=== PATIENT | male | born 1935 | race Caucasian/White ===

== ENCOUNTER → 2016-08-04 | Outpatient (CLI) | payer MEDICARE, BC ==
[~2016-08-04] MED LIST: CARVEDILOL12.5 MG PO; DIGOX0.125 MG DOB; HUMALOG100 U/ML SQ; JANTOVEN4 MG PO; LANTUS100 U/ML SQ; MIRTAZAPINE30 MG PO; NITROFURANTOIN100 M3 PO; PAROXETINE HCL20 MG PO; PLAVIX PO; PROTONIX PO; PROZAC40 MG DOB; SIMVASTATIN20 MG PO; TESTOSTERONE60 GM TD; ZOLPIDEM TARTRAT5 M1 PO
== END | disposition home or self-care (01) ==
LOC: CLAB 18:10
DX: N10 Acute pyelonephritis (principal)
CPT/HCPCS: 87086

== ENCOUNTER → 2016-09-21 | Outpatient (CLI) | payer MEDICARE, BC | END | disposition home or self-care (01) | LOC: CSSDAY 11:00 | DX: D46.1 Refractory anemia with ring sideroblasts (principal); Z79.899 Other long term (current) drug therapy | CPT/HCPCS: 96372; J1447 ==

== ENCOUNTER → 2016-09-23 | Outpatient (CLI) | payer MEDICARE, BC ==
[2016-09-23 15:31] LABS: BASOPHIL# 0.1 X10e3 (0-0.3); BASOPHIL% 0.4 % (0-2.5); EOSINOPHIL# 0.1 X10e3 (0-0.7); EOSINOPHIL% 0.5 % (0.0-7.0); HEMATOCRIT 26.9 % (38.0-50.0); HEMOGLOBIN 8.8 gm/dL (13.0-16.0); LYMPHOCYTE# 2.1 X10e3 (1.0-3.5); LYMPHOCYTE% 15.4 % (17.0-45.0); MEAN CELL VOLUME 108.7 FL (83-96); MEAN CORPUSCULAR HEMOGLOBIN 35.5 PG (28-34); MEAN CORPUSCULAR HGB CONC 32.6 g/dL (30-36); MEAN PLATELET VOLUME 8.5 FL (6.5-11.5); MONOCYTE# 0.8 X10e3 (0-1.0); MONOCYTE% 5.9 % (3.0-12.0); NEUTROPHIL# 10.4 X10e3 (1.5-7.1); NEUTROPHIL% 77.8 % (40-75); PLATELET COUNT 219 X10e3 (140-420); RED BLOOD COUNT 2.47 X10e (3.90-5.60); RED CELL DISTRIBUTION WIDTH 17.5 % (11.0-15.5); WHITE BLOOD COUNT 13.4 X10e3 (4.0-10.5)
[2016-09-23 15:32] LABS: DIFF IND YES
[2016-09-23 15:34] LABS: PROTHROMBIN TIME (PATIENT) 22.2 SECONDS (10.0-11.7)
[2016-09-23 16:05] LABS: ANISOCYTOSIS SL; PLATELET ESTIMATE NORMAL (NORMAL); POIKILOCYTOSIS SL; RBC NORMAL YES
== END | disposition home or self-care (01) ==
LOC: CSSDAY 08:00
PROVIDERS: Internal Medicine Cardiovascular Disease
DX: D46.1 Refractory anemia with ring sideroblasts (principal); R06.02 Shortness of breath; K92.2 Gastrointestinal hemorrhage, unspecified; R11.2 Nausea with vomiting, unspecified
CPT/HCPCS: 36415; 85025; 85610; 96372; J0885; J1447